=== PATIENT | female | born 1960 | race Caucasian/White ===

== ENCOUNTER 2023-08-01 01:30 | Day surgery (SDC) | payer BC, SELFPAY ==
[2023-07-08 15:54] VITALS: BMI 23.8
--- NOTE | 2023-07-30 10:07 | SUR.PREOP ---
Patient called regarding upcoming procedure. Reviewed preop instructions, new appointment times, and procedure prep.
[2023-08-01 07:06] VITALS: BP 133/84; PULSE 73; RESP 16; TEMP 36.6; O2SAT 100
[2023-08-01] MEDS: LACTATED RINGERS 1,000 ML 150 ML IV CONT (07:13)
--- NOTE | 2023-08-01 07:52 | P.PNAN_ITS ---
Anes - Initial Pre Proc Eval Procedure: Operation Date: 08/01/23 08:30 Proposed Procedures p Colonoscopy - Jesu Castellon MD Date/Time: 08/01/23 07:52 Surgeon: Jesu Castellon MD Pre Op Diagnosis: other fecal abnormalities,neoplasm screening Patient Data Age: 63 Gender: F Height: 1.68 m Weight: 66.2 kg Last Vital Signs Temp 97.8 F 08/01/23 07:06 Pulse 73 08/01/23 07:06 Resp 16 08/01/23 07:06 BP 133/84 08/01/23 07:06 Pulse Ox 100 08/01/23 07:06 O2 Del Method Room Air 08/01/23 07:06 Allergies Allergy/AdvReac Type Severity Reaction Status Date / Time No Known Allergies Allergy Verified 08/01/23 07:04 Home Medications Medication Instructions Recorded Confirmed Type amlodipine 5 mg tablet 5 mg PO DAILY 07/08/23 07/08/23 History aspirin 975 mg tablet,delayed 975 mg PO DAILY 07/08/23 07/08/23 History release baclofen 10 mg tablet 10 mg PO BID 07/08/23 07/08/23 History fluoxetine 20 mg tablet 20 mg PO DAILY 07/08/23 07/08/23 History gabapentin 300 mg capsule 300 mg PO 6XD 07/08/23 07/08/23 History ibuprofen 800 mg tablet 800 mg PO DAILY 07/08/23 07/08/23 History meloxicam 7.5 mg tablet 7.5 mg PO DAILY 07/08/23 07/08/23 History progesterone micronized 100 mg 100 mg DAILY 07/08/23 07/08/23 History capsule spironolactone 100 mg tablet 100 mg PO DAILY 07/08/23 07/08/23 History tizanidine 4 mg tablet 4 mg PO TID 07/08/23 07/08/23 History tramadol 50 mg tablet 50 mg PO TID 07/08/23 07/08/23 History zolpidem 5 mg tablet 5 mg PO HS 07/08/23 07/08/23 History Patient hx anesthesia problems: none Family hx anesthesia problems: none Results Review: All pre-operative results and documents have been reviewed as part of the pre- operative evaluation. PMFSH Social History Social History Years smoked: 5 Smoking status: Former smoker Tobacco type: cigarettes Alcohol intake: current Alcohol use details: once per month Living arrangements: with family Spiritual care concerns: No Anes - Eval Final PreProcedure Day of Procedure 08/01/23 07:52 Patient weight: normal Heart: regular rate and rhythm Lungs: clear to auscultation Airway: Mallampati scale class II Neurological: alert and oriented Last oral intake: >/= 8 hours ASA classification: III Emergent: no Anesthetic plan: proceed Anesthesia type and monitoring: general GIVS and standard monitoring Results Review: All pre-operative results and documents have been reviewed as part of the pre- operative evaluation. Informed Consent: The patient's anesthetic plan and its attendant risks and benefits were discussed with the patient/family/POA. Questions were solicited and answers provided to the satisfaction of the patient/family/POA.
--- NOTE | 2023-08-01 08:22 | PM.HPGS ---
History of Present Illness History of Present Illness Consent: Risks, benefits, and alternatives have been discussed and questions answered. Patient agrees to proceed with procedure. Chief complaint: other fecal abnormalities,neoplasm screening Narrative: Criselda Meek is a 63 year old female here for + cologuard, last colonoscopy 10 years ago Review of Systems Constitutional: Constitutional: Denies headache(s) and Denies weakness Eyes: Eyes: Denies blurry vision ENT: Reports Normal hearing present, Denies headache(s) and Denies neck pain Cardiovascular: Cardiovascular: Denies chest pain and Denies dyspnea Respiratory: Respiratory: Denies dyspnea Gastrointestinal: Gastrointestinal: Reports no additional gastrointestinal complaints Genitourinary: Genitourinary: Denies dysuria Musculoskeletal: Musculoskeletal: Denies neck pain Integumentary/Breasts: Skin/Breast: Denies dry skin Neurologic: Reports Normal hearing present, Denies headache(s) and Denies weakness Psychiatric: Psychiatric: Denies anxiety Endocrine: Endocrine: Denies change in body appearance Hematologic/Lymphatic: Hematologic/Lymphatic: Denies easy bleeding Allergic/Immunologic: Allergic/Immunologic: Denies urticaria PMFSH Past Medical History Medical History (Updated 08/01/23 @ 08:22 by Jesu Castellon MD) Positive colorectal cancer screening using Cologuard test Social History Social History Years smoked: 5 Smoking status: Former smoker Tobacco type: cigarettes Alcohol intake: current Alcohol use details: once per month Living arrangements: with family Spiritual care concerns: No Meds Home Medications and Allergies Home Medications Medication Instructions Recorded Confirmed Type amlodipine 5 mg tablet 5 mg PO DAILY 07/08/23 07/08/23 History aspirin 975 mg tablet,delayed 975 mg PO DAILY 07/08/23 07/08/23 History release baclofen 10 mg tablet 10 mg PO BID 07/08/23 07/08/23 History fluoxetine 20 mg tablet 20 mg PO DAILY 07/08/23 07/08/23 History gabapentin 300 mg capsule 300 mg PO 6XD 07/08/23 07/08/23 History ibuprofen 800 mg tablet 800 mg PO DAILY 07/08/23 07/08/23 History meloxicam 7.5 mg tablet 7.5 mg PO DAILY 07/08/23 07/08/23 History progesterone micronized 100 mg 100 mg DAILY 07/08/23 07/08/23 History capsule spironolactone 100 mg tablet 100 mg PO DAILY 07/08/23 07/08/23 History tizanidine 4 mg tablet 4 mg PO TID 07/08/23 07/08/23 History tramadol 50 mg tablet 50 mg PO TID 07/08/23 07/08/23 History zolpidem 5 mg tablet 5 mg PO HS 07/08/23 07/08/23 History Allergies Allergy/AdvReac Type Severity Reaction Status Date / Time No Known Allergies Allergy Verified 08/01/23 07:04 Vital Signs Vital Signs - 24 hr 08/01/23 07:06 Temperature 97.8 F Pulse Rate 73 Respiratory Rate 16 Blood Pressure 133/84 Pulse Oximetry 100 Oxygen Delivery Room Air Exam Const: General: comfortable and no acute distress HENMT: Face/Nose/Sinus: Normal nares present Eyes: General: appearance normal, both eyes and all related structures Neck: Neck: no JVD Resp: Auscultation: clear to auscultation bilaterally Cardio: Rate: regular rate Rhythm: regular rhythm GI: Inspection: non-distended GI Palp: Yes Soft to palpation Skin: General skin exam: normal color Neuro: General: gait normal Speech: normal speech Extrem: General: normal to inspection Psych: Mental Status: mental status grossly normal Assessment and Plan Assessment and plan (1) Positive colorectal cancer screening using Cologuard test: Code(s): R19.5 - Other fecal abnormalities Status: Acute Assessment and Plan: colonoscopy
[2023-08-01 08:43] VITALS: BP 109/66; PULSE 66; RESP 20; O2SAT 99
[2023-08-01 08:53] VITALS: BP 120/73; PULSE 62; RESP 20; O2SAT 100
[2023-08-01 09:03] VITALS: BP 131/80; PULSE 70; RESP 20; O2SAT 100
== END 2023-08-01 09:33 | disposition home or self-care (01) ==
PROVIDERS: PCP Family Medicine; Visit Provider Internal Medicine Gastroenterology
PROC: 0DJD8ZZ Inspection of Lower Intestinal Tract, Via Natural or Artificial Opening Endoscopic (ICD-10-PCS; CPT 45378; principal; 2023-08-01 08:30)
DX: Z12.11 Encounter for screening for malignant neoplasm of colon (principal); R19.5 Other fecal abnormalities; K57.30 Diverticulosis of large intestine without perforation or abscess without bleeding; K64.8 Other hemorrhoids
CPT/HCPCS: 45378; J2704; J7120